=== PATIENT | female | born 1990 | race Caucasian/White ===

== ENCOUNTER → 2016-07-26 | Outpatient (CLI) | payer BC ==
[2016-07-26 20:11] LABS: ALBUMIN 3.6 GM/DL (3.2-5.2); ALBUMIN/GLOBULIN RATIO 1.09 (1.00-1.93); ALKALINE PHOSPHATASE 91 U/L (45-117); ALT/SGPT 20 U/L (12-78); ANION GAP 6 MEQ/L (8-16); AST/SGOT 10 U/L (15-37); BILIRUBIN,TOTAL 0.3 MG/DL (0.2-1.0); BLOOD UREA NITROGEN 8 MG/DL (7-18); CALCIUM LEVEL 8.6 MG/DL (8.5-10.1); CARBON DIOXIDE LEVEL 26 MEQ/L (21-32); CHLORIDE LEVEL 106 MEQ/L (98-107); CREATININE FOR GFR 0.71 MG/DL (0.55-1.02); GLOMERULAR FILTRATION RATE > 60.0 (>60); GLUCOSE, FASTING 115 MG/DL (70-105); MAGNESIUM LEVEL 1.9 MG/DL (1.8-2.4); POTASSIUM SERUM 4.3 MEQ/L (3.5-5.1); SODIUM LEVEL 138 MEQ/L (136-145); TOTAL PROTEIN 6.9 GM/DL (6.4-8.2)
== END ==
LOC: M WUC 16:10
PROVIDERS: ATTEND Internal Medicine
DX: Z68.29 Body mass index [BMI] 29.0-29.9, adult (principal)

== ENCOUNTER 2016-12-08 13:42 | Emergency (ER) | payer OTHER, BC ==
[~2016-12-08] VITALS: Ht 162.6 cm; Wt 77.3 kg
[2016-12-08] MEDS ORDERED: NORCO, ANEXSIA 5/325MG TABLET (HYDROcodone/ACETAMINOPHEN) PO ONE (16:45)
--- NOTE | 2016-12-08 17:23 | REP ---
Lumbar spine series: Five views. History: Low back pain. Sciatica. Findings: Five views of the lumbar spine show preserved vertebral body heights. There is no evidence of fracture or collapse. Minimal disc space narrowing is seen at L4-5 and L5-S1. Pedicles and posterior elements are intact. Psoas margins are symmetric. Sacrum and SI joints are intact. Impression: Minimal disc space narrowing and L4-5 and L5-S1. Otherwise normal lumbar spine radiographs. Signed by Karel Haynes MD 12/09/2016 02:37 P
[2016-12-08] MEDS ORDERED: methylPREDNISolone INJ 125 MG/2 ML VIAL (J2930) IV ONE (17:45)
[2016-12-08] MEDS ORDERED: MORPHINE 4 MG/ML 1ML SYRINGE IV PRN (21:00)
--- NOTE | 2016-12-08 21:00 | REPUSA ---
MRI of the lumbar spine without contrast Clinical statement: Pain. Technique: Multiecho multiplanar MRI images of the lumbar spine were obtained without administration of contrast. Comparison: None. Findings: The lumbar vertebral bodies are in satisfactory position and alignment. No fractures or dis locations are demonstrated. Normal heterogeneous bone marrow signal is noted. No osseous tumors are s een. There's degenerative changes with loss of signal in the L5/S1 disc. The intervertebral disc heig hts are otherwise well maintained and demonstrate normal signal. The filum terminale and conus medull berenice appear unremarkable. The spinal cord demonstrates normal signal and contour. The surrounding sof t tissues are within normal limits. At L5/S1, there is a large central disc protrusion measuring 0.9 x 2.5 cm. This causes severe mass ef fect on the anterior thecal sac, with the central canal narrowing measuring 8 mm in AP diameter. Ther e is moderately severe bilateral neural foraminal narrowing as well. The disc appears to come in cont act with the right exiting S1 nerve root. Left exiting S1 nerve root comes in close proximity to the disc. At the other lumbar vertebral levels, there is no evidence of disc herniation or protrusion. There is no central canal stenosis. The neural foramina are patent bilaterally. Impression: Large central disc protrusion at L5/S1 causing moderately severe central canal stenosis. There is moderate bilateral neural foraminal narrowing as described as well.
[2016-12-08] MEDS ORDERED: OXYCODONE/APAP 5MG/325MG(BULK FOR ED) 1 TABLET PO ONE (22:00)
[2016-12-08] MEDS ORDERED: OXYC1TAB15 PO (22:00)
[2016-12-08 22:15] VITALS: BP 119/70
== END 2016-12-08 22:40 | disposition home or self-care (01) ==
LOC: M ED 13:42
DX: M48.061 Spinal stenosis, lumbar region without neurogenic claudication (principal); M54.42 Lumbago with sciatica, left side; M51.86 Other intervertebral disc disorders, lumbar region
CPT/HCPCS: 72110; 72148; 96374; 96375; 99283; J2930; J3360

== ENCOUNTER → 2017-10-12 | Outpatient (REF) | payer OTHER ==
[2017-10-18 08:27] LABS: O+P EXAM Final report (.)
== END ==
LOC: M LAB REF 12:36
DX: K58.0 Irritable bowel syndrome with diarrhea (principal)
CPT/HCPCS: 87177